=== PATIENT | female | born 1960 | race American Indian/Alaskan Native ===

== ENCOUNTER 2018-12-16 10:05 | Emergency (ER) | payer BC ==
[2018-12-16 10:11] VITALS: BP 145/85
[2018-12-16] MEDS ORDERED: ZOFRAN ODT PO ONE (11:21)
--- NOTE | 2018-12-16 11:43 | Emergency Department Report ---
Vomiting/Diarrhea - HPI Chief Complaint: Nausea/Vomiting/Diarrhea Stated Complaint: STOMACH PAIN/DIARRHEA/HEADACHES Time Seen by Provider: 12/16/18 11:04 Nausea/Vomiting Severity: None Diarrhea Severity: Mild Pain Location: Generalized Pain Severity: Mild Symptoms: Yes Watery Diarrhea, Yes Able to Tolerate Fluids, Yes Recent Unusual Foods, No Bloody diarrhea, No Fever, No Recent Untreated Water, No Recent use of Antibiotics, No Family w/ Similar Symptoms, No Contacts w/ Similar Symptoms, No Rash, No Hematuria, No Recent URI Symptoms ED Review of Systems ROS: Stated complaint: STOMACH PAIN/DIARRHEA/HEADACHES Other details as noted in HPI Comment: All other systems reviewed and negative ED Past Medical Hx - Past Medical History Previous Medical History?: Yes Hx Hypertension: Yes Hx Congestive Heart Failure: No Hx Diabetes: Yes Hx Asthma: No Hx COPD: No - Surgical History Past Surgical History?: Yes Additional Surgical History: Clips noted right chest and axillary area possibly from previous breast surgery - Social History Smoking Status: Never Smoker Substance Use Type: None - Medications Home Medications: Home Medications Medication Instructions Recorded Confirmed Last Taken Type Aspirin [Aspirin BABY CHEW TAB] 81 mg PO QDAY 06/24/15 06/24/15 06/24/15 History Cyanocobalamin [Vitamin B-12] 50 mcg PO DAILY 06/24/15 06/24/15 06/24/15 History Griseofulvin Ultramicrosize 250 mg PO BID #60 tablet 06/24/15 Unknown Rx [Yara-Peg] Ibuprofen [Motrin] 600 mg PO Q8H PRN #30 tablet 06/24/15 Unknown Rx Multivit-Min/Iron/Folic/Lutein 1 each PO QDAY 06/24/15 06/24/15 06/24/15 History [Centrum Silver Women Tablet] Rosuvastatin (Nf) [Crestor] 10 mg PO QHS 06/24/15 06/24/15 06/24/15 History Selenium Sulfide/Menthol [Selsun 1 dose TP 1XW #1 bottle 06/24/15 Unknown Rx Blue 1% Shampoo] hydroCHLOROthiazide [HCTZ] 25 mg PO QDAY 06/24/15 06/24/15 06/24/15 History metFORMIN [Glucophage] 500 mg PO QDAY 06/24/15 06/24/15 06/24/15 History Naproxen [Naprosyn] 375 mg PO BID #20 tablet 12/16/18 Unknown Rx Ondansetron [Zofran ODT TAB] 8 mg PO Q12HR #20 tab.rapdis 12/16/18 Unknown Rx Vomiting Diarrhea Exam - Exam General: Vital signs noted. No distress. Alert and acting appropriately. HEENT: Yes Moist Mucous Membranes, No Pharyngeal Erythema, No Pharyngeal Exudates, No Rhinorrhea, No Conjuctival Injection, No Frontal Tenderness, No Maxillary Tenderness Neck: No Adenopathy, No Rigidity Lungs: Yes Clear Lung Sounds, Yes Good Air Exchange, No Wheezes, No Stridor, No Cough, No Nasal Flaring, No Retractions, No Use of Accessory Muscles Heart exam: Regular: Yes, Murmur: No, Tachycardia: No Abdomen: Tenderness: No, Peritoneal Signs: No, Distention: No, Hyperactive Bowel sounds: No Skin exam: Rash: No, Edema: No, Normal turgor: Yes Neurologic: Alert and oriented, no deficits. Musculoskeletal: Unremarkable. ED Course Vital Signs 12/16/18 10:10 Temperature 98.2 F Pulse Rate 75 Respiratory 16 Rate Blood Pressure 145/85 O2 Sat by Pulse 98 Oximetry ED Medical Decision Making - Medical Decision Making 58-year-old female presents for gastroenteritis. There was no vomiting episode in the ED. Discussed symptoms resolved on its own 7-14 days. Discussed follow-up with primary care physician / Gastro symptoms don't resolve Vital signs are normal she is in no acute distress Discuss the return to ED for any worsening of symptoms. Critical care attestation.: If time is entered above; I have spent that time in minutes in the direct care of this critically ill patient, excluding procedure time. ED Disposition Clinical Impression: Gastroenteritis Disposition: DC-01 TO HOME OR SELFCARE Is pt being admited?: No Does the pt Need Aspirin: No Condition: Stable Instructions: Gastroenteritis (ED), Food Poisoning (ED) Additional Instructions: Make sure to follow up with the primary care physician as discussed. Take all your medications as you've been prescribed. If you have any worsening symptoms or develop new symptoms please return to ED immediately. Prescriptions: Naproxen [Naprosyn] 375 mg PO BID #20 tablet Ondansetron [Zofran ODT TAB] 8 mg PO Q12HR #20 tab.rapdis Referrals: LISA RICE MD [Primary Care Provider] - 3-5 Days [facility] [Provider Group] - 3-5 Days Forms: Accompanied Note, Work/School Release Form(ED) Time of Disposition: 11:55
== END 2018-12-16 12:11 | disposition home or self-care (01) ==
LOC: ED 10:05
DX: K52.9 Noninfective gastroenteritis and colitis, unspecified (principal); R11.2 Nausea with vomiting, unspecified; I10 Essential (primary) hypertension; E11.9 Type 2 diabetes mellitus without complications; Z79.82 Long term (current) use of aspirin
CPT/HCPCS: 99282; Q0162

== ENCOUNTER 2019-03-02 17:57 | Emergency (ER) | payer BC ==
[2019-03-02 18:05] VITALS: BP 164/69
--- NOTE | 2019-03-02 18:05 | Emergency Department Report ---
Blank Doc - Documentation Documentation: This is a 58-year-old female that presents with right knee pain and swelling. Patient also stated has some chest pain. Denies any SOB stated has some coughing and thats when she develops CP. Otherwise denies any chest pain. This initial assessment/diagnostic orders/clinical plan/treatment(s) is/are subject to change based on patient's health status, clinical progression and re- assessment by fellow clinical providers in the ED. Further treatment and workup at subsequent clinical providers discretion. Patient/guardians urged not to elope from the ED as their condition may be serious if not clinically assessed and managed. Initial orders include: 1- Patient sent to [facility] for further evaluation and treatment 2- xray right knee and chest
--- NOTE | 2019-03-02 19:13 | XRay Report ---
RIGHT KNEE 4 VIEWS INDICATION / CLINICAL INFORMATION: Right knee pain. COMPARISON: None available. FINDINGS: BONES / JOINT(S): There are moderate tricompartmental degenerative changes. I see no evidence of frac ture, dislocation or destructive lesion. No joint effusion is identified. SOFT TISSUES: There are 2 small adjacent linear areas of high density anterior to the lower pole of t he patella. ADDITIONAL FINDINGS: None. IMPRESSION: 1. Moderate osteoarthritis. 2. A couple of linear densities anterior to the lower pole of the patella likely represent foreign paulo dies. Signer Name: Edison Rahman MD Signed: 03/02/2019 7:09 PM Workstation Name: [id number]
--- NOTE | 2019-03-02 19:18 | XRay Report ---
CHEST 2 VIEWS INDICATION: cough. COMPARISON: None. FINDINGS: Support devices: None. Heart: Borderline heart size. Lungs/Pleura: No acute air space or interstitial disease. No significant pleural effusion. IMPRESSION: No acute findings. Signer Name: Rigoberto Walsh MD Signed: 03/02/2019 7:14 PM Workstation Name: [id number]
[2019-03-02] MEDS ORDERED: MORPHINE IV ONE (19:47)
[2019-03-02] MEDS ORDERED: ASPIRIN PO ONE (19:47)
[2019-03-02] MEDS ORDERED: ZOFRAN IV ONE (19:47)
[2019-03-02] MEDS ORDERED: SOLU-Medrol IV ONE (19:47)
[2019-03-02 20:26] LABS: Basophils % (Auto) 0.3 % (0.0-1.8); Eosinophils # (Auto) 0.1 K/mm3 (0.0-0.4); Eosinophils % (Auto) 0.9 % (0.0-4.3); Hematocrit 31.6 % (30.3-42.9); Hemoglobin 10.2 gm/dl (10.1-14.3); Lymphocytes # (Auto) 2.2 K/mm3 (1.2-5.4); Lymphocytes % (Auto) 23.8 % (13.4-35.0); Mean Corpuscular HGB Conc 32 % (30-34); Mean Corpuscular Volume 75 fl (79-97); Monocytes # (Auto) 0.7 K/mm3 (0.0-0.8); Monocytes % (Auto) 7.2 % (0.0-7.3); Platelet Count 260 K/mm3 (140-440); Red Blood Count 4.23 M/mm3 (3.65-5.03); Red Cell Distribution Width 14.5 % (13.2-15.2)
[2019-03-02 21:56] LABS: Alanine Aminotransferase TNR units/L (7-56)
[2019-03-02 21:58] LABS: BUN/Creatinine Ratio TNR; Blood Urea Nitrogen TNR mg/dL (7-17)
[2019-03-02 21:59] LABS: Calcium TNR mg/dL (8.4-10.2)
[2019-03-02 22:00] LABS: Albumin TNR g/dL (3.9-5); Hemolysis Index TNR
[2019-03-02 23:03] LABS: Alanine Aminotransferase 19 units/L (7-56); Albumin 4.2 g/dL (3.9-5); BUN/Creatinine Ratio 25; Blood Urea Nitrogen 15 mg/dL (7-17); Calcium 9.3 mg/dL (8.4-10.2); Hemolysis Index 3
--- NOTE | 2019-03-02 23:43 | Emergency Department Report ---
ED General Adult HPI - General Chief complaint: Chest Pain Stated complaint: PAIN IN CHEST/RT LEG SWOLLEN Time Seen by Provider: 03/02/19 18:03 Source: patient Mode of arrival: Ambulatory Limitations: No Limitations - History of Present Illness Initial comments: Patient is a 58-year-old -Citizen Of [place] female with a history of hypertension and [id number] diabetes who presents to the ED, in no acute onset persistent intermittent dry cough with left sided chest pain and persistently painful left knee joint with swelling for the last 1 month. Patient states that in the last 2 days left knee pain, the dry cough and left sided chest pain have been persistent. Patient denies fall, traumatic injury, heavy lifting, nausea, vomiting, shortness of breath, fever, chills, sore throat, abdominal pain, back pain, numbness and tingling of upper and lower extremities bilaterally, dizziness or palpitations. MD Complaint: left-sided chest pain, dry cough and left knee pain -: Sudden, month(s) (1) Location: chest, lower extremity (knee) Radiation: non-radiation Severity scale (0 -10): 8 Quality: aching, sharp Improves with: none Worsens with: movement Associated Symptoms: denies other symptoms, chest pain, cough. denies: confusion, diaphoresis, fever/chills, headaches, loss of appetite, malaise, nausea/vomiting, rash, seizure, shortness of breath, syncope, weakness Treatments Prior to Arrival: none - Related Data Home Medications Medication Instructions Recorded Confirmed Last Taken Aspirin [Aspirin BABY CHEW TAB] 81 mg PO QDAY 06/24/15 06/24/15 06/24/15 Cyanocobalamin [Vitamin B-12] 50 mcg PO DAILY 06/24/15 06/24/15 06/24/15 Multivit-Min/Iron/Folic/Lutein 1 each PO QDAY 06/24/15 06/24/15 06/24/15 [Centrum Silver Women Tablet] Rosuvastatin (Nf) [Crestor] 10 mg PO QHS 06/24/15 06/24/15 06/24/15 hydroCHLOROthiazide [HCTZ] 25 mg PO QDAY 06/24/15 06/24/15 06/24/15 metFORMIN [Glucophage] 500 mg PO QDAY 06/24/15 06/24/15 06/24/15 Previous Rx's Medication Instructions Recorded Last Taken Type Griseofulvin Ultramicrosize 250 mg PO BID #60 tablet 06/24/15 Unknown Rx [Yara-Peg] Ibuprofen [Motrin] 600 mg PO Q8H PRN #30 tablet 06/24/15 Unknown Rx Selenium Sulfide/Menthol [Selsun 1 dose TP 1XW #1 bottle 06/24/15 Unknown Rx Blue 1% Shampoo] Naproxen [Naprosyn] 375 mg PO BID #20 tablet 12/16/18 Unknown Rx Ondansetron [Zofran ODT TAB] 8 mg PO Q12HR #20 tab.rapdis 12/16/18 Unknown Rx Benzonatate [Tessalon Perles] 100 mg PO Q8HR PRN #30 capsule 03/02/19 Unknown Rx Naproxen [Naprosyn TAB] 500 mg PO Q12H PRN #20 tablet 03/02/19 Unknown Rx Prednisone [predniSONE 10 mg 10 mg PO .TAPER #1 tab.ds.pk 03/02/19 Unknown Rx (6-Day Pack, 21 Tabs)] tiZANidine [Zanaflex 4mg TAB] 4 mg PO Q8H PRN #15 tablet 03/02/19 Unknown Rx traMADol [Ultram] 50 mg PO Q6HR PRN #15 tablet 03/02/19 Unknown Rx Allergies Allergy/AdvReac Type Severity Reaction Status Date / Time No Known Allergies Allergy Verified 03/02/19 18:05 ED Review of Systems ROS: Stated complaint: PAIN IN CHEST/RT LEG SWOLLEN Other details as noted in HPI Constitutional: denies: chills, fever Eyes: denies: eye pain, eye discharge, vision change ENT: denies: ear pain, throat pain Respiratory: cough. denies: shortness of breath, SOB with exertion, SOB at rest, wheezing Cardiovascular: chest pain. denies: palpitations Endocrine: no symptoms reported. denies: excessive sweating, flushing, intolerance to cold, increased hunger Gastrointestinal: denies: abdominal pain, nausea, diarrhea Genitourinary: denies: urgency, dysuria, discharge Musculoskeletal: denies: back pain, joint swelling, arthralgia Skin: denies: rash, lesions Neurological: denies: headache, weakness, paresthesias Psychiatric: denies: anxiety, depression Hematological/Lymphatic: denies: easy bleeding, easy bruising ED Past Medical Hx - Past Medical History Previous Medical History?: Yes Hx Hypertension: Yes Hx Congestive Heart Failure: No Hx Diabetes: Yes Hx Asthma: No Hx COPD: No Additional medical history: Hx of Ovarian and Breast CA - Surgical History Past Surgical History?: Yes Additional Surgical History: Breast surgery - Social History Smoking Status: Never Smoker Substance Use Type: None - Medications Home Medications: Home Medications Medication Instructions Recorded Confirmed Last Taken Type Aspirin [Aspirin BABY CHEW TAB] 81 mg PO QDAY 06/24/15 06/24/15 06/24/15 History Cyanocobalamin [Vitamin B-12] 50 mcg PO DAILY 06/24/15 06/24/15 06/24/15 History Griseofulvin Ultramicrosize 250 mg PO BID #60 tablet 06/24/15 Unknown Rx [Yara-Peg] Ibuprofen [Motrin] 600 mg PO Q8H PRN #30 tablet 06/24/15 Unknown Rx Multivit-Min/Iron/Folic/Lutein 1 each PO QDAY 06/24/15 06/24/15 06/24/15 History [Centrum Silver Women Tablet] Rosuvastatin (Nf) [Crestor] 10 mg PO QHS 06/24/15 06/24/15 06/24/15 History Selenium Sulfide/Menthol [Selsun 1 dose TP 1XW #1 bottle 06/24/15 Unknown Rx Blue 1% Shampoo] hydroCHLOROthiazide [HCTZ] 25 mg PO QDAY 06/24/15 06/24/15 06/24/15 History metFORMIN [Glucophage] 500 mg PO QDAY 06/24/15 06/24/15 06/24/15 History Naproxen [Naprosyn] 375 mg PO BID #20 tablet 12/16/18 Unknown Rx Ondansetron [Zofran ODT TAB] 8 mg PO Q12HR #20 tab.rapdis 12/16/18 Unknown Rx Benzonatate [Tessalon Perles] 100 mg PO Q8HR PRN #30 capsule 03/02/19 Unknown Rx Naproxen [Naprosyn TAB] 500 mg PO Q12H PRN #20 tablet 03/02/19 Unknown Rx Prednisone [predniSONE 10 mg 10 mg PO .TAPER #1 tab.ds.pk 03/02/19 Unknown Rx (6-Day Pack, 21 Tabs)] tiZANidine [Zanaflex 4mg TAB] 4 mg PO Q8H PRN #15 tablet 03/02/19 Unknown Rx traMADol [Ultram] 50 mg PO Q6HR PRN #15 tablet 03/02/19 Unknown Rx ED Physical Exam - General Limitations: No Limitations General appearance: alert, in no apparent distress - Head Head exam: Present: atraumatic, normocephalic, normal inspection - Eye Eye exam: Present: normal appearance, PERRL, EOMI. Absent: scleral icterus, conjunctival injection, nystagmus, periorbital swelling, periorbital tenderness Pupils: Present: normal accommodation - ENT ENT exam: Present: normal exam, normal orophraynx, mucous membranes moist, TM's normal bilaterally, normal external ear exam - Neck Neck exam: Present: normal inspection, full ROM - Respiratory Respiratory exam: Present: normal lung sounds bilaterally. Absent: respiratory distress, wheezes, rales, rhonchi, chest wall tenderness, accessory muscle use, decreased breath sounds, prolonged expiratory - Cardiovascular Cardiovascular Exam: Present: regular rate, normal rhythm, normal heart sounds. Absent: systolic murmur, diastolic murmur, rubs, gallop - GI/Abdominal GI/Abdominal exam: Present: soft, normal bowel sounds. Absent: distended, tenderness, guarding, hyperactive bowel sounds, hypoactive bowel sounds, organomegaly - Rectal Rectal exam: Present: deferred - Extremities Exam Extremities exam: Present: normal inspection, tenderness (Left knee tenderness, swelling), normal capillary refill, joint swelling (left knee) - Back Exam Back exam: Present: normal inspection, full ROM. Absent: tenderness, CVA tenderness (L), muscle spasm, paraspinal tenderness, vertebral tenderness - Neurological Exam Neurological exam: Present: alert, oriented X3, CN II-XII intact, normal gait, reflexes normal - Psychiatric Psychiatric exam: Present: normal affect, normal mood - Skin Skin exam: Present: warm, dry, intact, normal color. Absent: rash ED Course Vital Signs 03/02/19 03/02/19 18:03 20:10 Temperature 98.5 F Pulse Rate 79 Respiratory 16 17 Rate Blood Pressure 164/69 O2 Sat by Pulse 98 Oximetry - Reevaluation(s) Reevaluation #1: 03/02/19 23:51 Patient is alert and oriented 3 and is not in distress. Vital signs are stable. Laboratory results are unremarkable. Chest x-ray shows no acute cardiopulmonary abnormalities. EKG shows normal sinus rhythm with a ventricular rate of 63 bpm and nontender or ST-T wave abnormalities. Left knee x-ray shows moderate degenerative joint disease, with the presence of post small foreign bodies in the left knee joint consistent with the patient's past medical history some metallic middles being left in the knee over 40 years ago. On reevaluation, patient's pain is well-controlled with medications, and patient will be sent home on medications and advised to follow-up with her primary care physician in 7-10 days for reevaluation. Patient advised to return to the ED immediately if symptoms get worse. 03/03/19 00:53 ED Medical Decision Making - Lab Data Result diagrams: 03/02/19 19:57 03/02/19 22:20 - EKG Data EKG shows normal: sinus rhythm - EKG Data Interpretation: normal EKG 03/03/19 00:51 Normal sinus rhythm, vent. rate of 63 bpm; no ST or T wave abnormalities - Radiology Data Radiology results: report reviewed, image reviewed Chest x-ray: No acute cardiopulmonary abnormalities Left knee x-ray: Degenerative joint disease. Small foreign bodies in the knee joint - Medical Decision Making Patient is alert and oriented 3 and is not in distress. Vital signs are stable. Laboratory results are unremarkable. Chest x-ray shows no acute cardiopulmonary abnormalities. The EKG shows normal sinus rhythm with ventricular rate of 63 bpm, and no T or ST wave abnormalities. Left knee x-ray shows moderate degenerative joint disease, with the presence of post small foreign bodies in the left knee joint consistent with the patient's past medical history some metallic middles being left in the knee over 40 years ago. On reevaluation, patient's pain is well-controlled with medications, and patient will be sent home on medications and advised to follow-up with her primary care physician in 7-10 days for reevaluation. Patient advised to return to the ED im mediately if symptoms get worse. - Differential Diagnosis Acute bronchitis; chronic osteoathritis, ACS, Pneumonia Critical care attestation.: If time is entered above; I have spent that time in minutes in the direct care of this critically ill patient, excluding procedure time. ED Disposition Clinical Impression: Nonspecific chest pain Osteoarthritis of left knee Qualifiers: Osteoarthritis type: primary Qualified Code(s): M17.12 - Unilateral primary osteoarthritis, left knee Acute bronchitis Qualifiers: Bronchitis organism: unspecified organism Qualified Code(s): J20.9 - Acute bronchitis, unspecified Disposition: TO HOME OR SELFCARE Is pt being admited?: No Does the pt Need Aspirin: No Condition: Stable Instructions: Chest Pain (ED), Osteoarthritis (ED), Costochondritis (ED), Acute Bronchitis (ED) Additional Instructions: Take medication with food, drink plenty of fluids and follow up with your primary care physician in 7-10 days for reevaluation. Return to the ED immediately if symptoms get worse. Prescriptions: Naproxen [Naprosyn TAB] 500 mg PO Q12H PRN #20 tablet PRN Reason: Pain , Severe (7-10) Prednisone [predniSONE 10 mg (6-Day Pack, 21 Tabs)] 10 mg PO .TAPER #1 tab.ds.pk Benzonatate [Tessalon Perles] 100 mg PO Q8HR PRN #30 capsule PRN Reason: Cough traMADol [Ultram] 50 mg PO Q6HR PRN #15 tablet PRN Reason: Pain tiZANidine [Zanaflex 4mg TAB] 4 mg PO Q8H PRN #15 tablet PRN Reason: Spasms Referrals: [facility] [Outside] - 3-5 Days Forms: Work/School Release Form(ED) Time of Disposition: 23:39 Print Language: FRISIAN
== END 2019-03-03 01:05 | disposition home or self-care (01) ==
LOC: ED 17:57
DX: J20.9 Acute bronchitis, unspecified (principal); M17.12 Unilateral primary osteoarthritis, left knee; I10 Essential (primary) hypertension; Z79.899 Other long term (current) drug therapy
CPT/HCPCS: 36415; 71046; 73562; 80053; 83880; 84484; 85025; 93005; 93010; 96374; 96375; 99284; J2270; J2405; J2930